=== PATIENT | male | born 1950 | race Caucasian/White ===

== ENCOUNTER 2017-05-18 20:22 | Inpatient (IN) | payer OTHER ==
[~2017-05-18] VITALS: Ht 187.9 cm; Wt 108.6 kg
[~2017-05-18 20:22] MED LIST: LIDEX 0.05% CRE15 GM T; REMERON30 M1 PO; TRAZODONE100 MG PO; ZOLOFT50 MG PO
[2017-05-18 20:30] VITALS: BP 188/89
[2017-05-18 20:43] LABS: BASO % 0.5 % (0.0-1.0); EOS # 0.4 10*3/uL (0.0-0.4); EOS % 4.2 % (1.0-4.0); HEMATOCRIT 41.8 % (42.0-52.0); HEMOGLOBIN 14.1 g/dl (14.0-18.0); LYMPH % 23.4 % (27.0-41.0); MEAN CELL VOLUME 86.9 fl (80.0-94.0); MEAN CORPUSCULAR HGB 29.3 pg (27.0-31.0); MEAN CORPUSCULAR HGB CONC 33.7 g/dl (33.0-37.0); MEAN PLATELET VOLUME 10.9 fl (9.6-12.3); MONO # 0.9 10*3/uL (0.1-1.0); MONO % 9.9 % (3.0-9.0); NEUT # 5.4 10*3/uL (2.3-7.9); NEUT % 61.8 % (47.0-73.0); PLATELET COUNT AUTOMATED 189 10*3/uL (130-400); RED BLOOD COUNT 4.81 10*6/uL (4.50-5.90); RED CELL DISTRI WIDTH 12.6 % (0-14.5); WHITE BLOOD COUNT 8.7 10*3/uL (4.8-10.8)
[2017-05-18 20:53] LABS: INTERNATIONAL NORM RATIO 0.9 (2.0-3.5); PROTHROMBIN TIME 9.8 SECONDS (9.0-12.4)
[2017-05-18 21:00] LABS: ALBUMIN 3.4 gm/dl (3.1-4.5); ALKALINE PHOSPHATASE 78 U/L (45-117); BILIRUBIN, TOTAL 0.3 mg/dl (0.2-1.0); BUN 28 mg/dl (7-24); CARBON DIOXIDE 27 mmol/L (21-32); CHLORIDE 107 mmol/L (98-107); EST GLOM FILT AFRICAN AMERICAN > 60 ml/min; GLUCOSE 124 mg/dL (65-99); MAGNESIUM 2.1 mg/dL (1.5-2.1); POTASSIUM 3.8 mmol/L (3.5-5.1); SGOT/AST 20 IU/L (3-35); SGPT/ALT 28 U/L (12-78); SODIUM 142 mmol/L (136-145); TOTAL PROTEIN 6.9 gm/dL (6.4-8.2)
[2017-05-18 21:01] LABS: TROPONIN I < 0.015 ng/ml (<0.045)
[2017-05-18 21:17] VITALS: BP 146/66
[2017-05-18 21:33] VITALS: BP 161/72
[2017-05-18 21:58] VITALS: BP 173/81
[2017-05-18 22:00] VITALS: BP 173/81
[2017-05-19] VITALS: BP 165/80; BP 168/76
[2017-05-19 02:36] LABS: BASO % 0.4 % (0.0-1.0); EOS # 0.3 10*3/uL (0.0-0.4); EOS % 4.2 % (1.0-4.0); HEMATOCRIT 40.9 % (42.0-52.0); HEMOGLOBIN 13.8 g/dl (14.0-18.0); LYMPH # 1.6 10*3/uL (1.3-4.4); LYMPH % 23.2 % (27.0-41.0); MEAN CELL VOLUME 87.2 fl (80.0-94.0); MEAN CORPUSCULAR HGB 29.4 pg (27.0-31.0); MEAN CORPUSCULAR HGB CONC 33.7 g/dl (33.0-37.0); MEAN PLATELET VOLUME 10.4 fl (9.6-12.3); MONO # 0.8 10*3/uL (0.1-1.0); MONO % 11.7 % (3.0-9.0); NEUT # 4.1 10*3/uL (2.3-7.9); NEUT % 60.1 % (47.0-73.0); PLATELET COUNT AUTOMATED 164 10*3/uL (130-400); RED BLOOD COUNT 4.69 10*6/uL (4.50-5.90); RED CELL DISTRI WIDTH 12.6 % (0-14.5); WHITE BLOOD COUNT 6.9 10*3/uL (4.8-10.8)
[2017-05-19 02:53] LABS: HEMOGLOBIN A1c 5.9 % (4.8-5.6)
[2017-05-19 03:02] LABS: ALBUMIN 3.1 gm/dl (3.1-4.5); ALKALINE PHOSPHATASE 64 U/L (45-117); BILIRUBIN, TOTAL 0.3 mg/dl (0.2-1.0); BUN 24 mg/dl (7-24); CARBON DIOXIDE 24 mmol/L (21-32); CHLORIDE 110 mmol/L (98-107); CHOLESTEROL 143 mg/dL (<200); EST GLOM FILT AFRICAN AMERICAN > 60 ml/min; GLUCOSE 106 mg/dL (65-99); HDL CHOLESTEROL 33 mg/dl (40-60); LDL CHOLESTEROL 94 mg/dL (9-159); MAGNESIUM 2.1 mg/dL (1.5-2.1); PHOSPHOROUS 3.5 mg/dL (2.5-4.9); SGOT/AST 17 IU/L (3-35); SGPT/ALT 26 U/L (12-78); SODIUM 142 mmol/L (136-145); TOTAL PROTEIN 6.5 gm/dL (6.4-8.2); TRIGLYCERIDES 81 mg/dl (<150); VLDL CHOLESTEROL 16 mg/dL (6-40)
[2017-05-19 03:21] LABS: VITAMIN D, 25-HYDROXY 30.3 ng/mL (30-100)
[2017-05-19 03:22] LABS: FOLIC ACID 11.13 ng/mL (>5.38)
[2017-05-19 04:00] VITALS: BP 168/76
[2017-05-19 08:00] VITALS: BP 155/80
[2017-05-19] MEDS ORDERED: LISINOPRIL20 MG PO (10:34)
[2017-05-19] MEDS ORDERED: LEVAQUIN750 M1 PO (10:36)
== END 2017-05-19 11:17 | disposition home or self-care (01) | DRG 178 ==
LOC: ED 20:22 → EDHOLD 21:11 → 5E 21:36
PROVIDERS: Hospitalist; Student in an Organized Health Care Education/Training Program
DX: J15.6 Pneumonia due to other Gram-negative bacteria (principal); I16.1 Hypertensive emergency; J44.9 Chronic obstructive pulmonary disease, unspecified; J98.11 Atelectasis; F17.210 Nicotine dependence, cigarettes, uncomplicated; E11.9 Type 2 diabetes mellitus without complications; E66.9 Obesity, unspecified; E78.5 Hyperlipidemia, unspecified; Z79.2 Long term (current) use of antibiotics; Z79.899 Other long term (current) drug therapy; Z82.49 Family history of ischemic heart disease and other diseases of the circulatory system; I25.2 Old myocardial infarction; Z89.111 Acquired absence of right hand; Z71.6 Tobacco abuse counseling; Z95.1 Presence of aortocoronary bypass graft; Z95.5 Presence of coronary angioplasty implant and graft; Z68.30 Body mass index [BMI] 30.0-30.9, adult

== ENCOUNTER 2017-06-21 13:28 | Emergency (ER) | payer OTHER ==
[~2017-06-21] VITALS: Wt 106.6 kg
[~2017-06-21 13:28] MED LIST changes: +LEVAQUIN750 M1 PO; +LISINOPRIL20 MG PO
[2017-06-21 13:31] VITALS: BP 177/85
[2017-06-21 13:58] LABS: BASO # 0.1 10*3/uL (0.0-0.1); BASO % 0.6 % (0.0-1.0); EOS # 0.4 10*3/uL (0.0-0.4); HEMATOCRIT 44.8 % (42.0-52.0); HEMOGLOBIN 15.2 g/dl (14.0-18.0); LYMPH # 2.4 10*3/uL (1.3-4.4); LYMPH % 20.6 % (27.0-41.0); MEAN CELL VOLUME 87.2 fl (80.0-94.0); MEAN CORPUSCULAR HGB 29.6 pg (27.0-31.0); MEAN CORPUSCULAR HGB CONC 33.9 g/dl (33.0-37.0); MEAN PLATELET VOLUME 11.1 fl (9.6-12.3); MONO # 0.5 10*3/uL (0.1-1.0); MONO % 4.1 % (3.0-9.0); NEUT # 8.2 10*3/uL (2.3-7.9); NEUT % 71.2 % (47.0-73.0); PLATELET COUNT AUTOMATED 203 10*3/uL (130-400); RED BLOOD COUNT 5.14 10*6/uL (4.50-5.90); RED CELL DISTRI WIDTH 12.7 % (0-14.5); WHITE BLOOD COUNT 11.5 10*3/uL (4.8-10.8)
[2017-06-21 14:17] LABS: ALBUMIN 3.5 gm/dl (3.1-4.5); ALKALINE PHOSPHATASE 77 U/L (45-117); BUN 16 mg/dl (7-24); CHLORIDE 105 mmol/L (98-107); CREATININE 0.87 mg/dL (0.70-1.30); MAGNESIUM 2.1 mg/dL (1.5-2.1); POTASSIUM 4.1 mmol/L (3.5-5.1); SGOT/AST 20 IU/L (3-35); SGPT/ALT 23 U/L (12-78); SODIUM 139 mmol/L (136-145); TOTAL PROTEIN 7.3 gm/dL (6.4-8.2)
[2017-06-21 14:24] LABS: TROPONIN I < 0.015 ng/ml (<0.045)
== END 2017-06-21 15:48 | disposition home or self-care (01) ==
LOC: ED 13:28
PROVIDERS: Nurse Practitioner Family
DX: J40 Bronchitis, not specified as acute or chronic (principal); R03.0 Elevated blood-pressure reading, without diagnosis of hypertension; F17.200 Nicotine dependence, unspecified, uncomplicated

== ENCOUNTER 2018-12-19 16:52 | Inpatient (IN) | payer OTHER ==
[~2018-12-19] VITALS: Ht 188 cm; Wt 108.2 kg
--- NOTE | ~2018-12-19 | EKG ---
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
--- NOTE | ~2018-12-19 | EKG ---
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
--- NOTE | ~2018-12-19 | EKG ---
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
--- NOTE | ~2018-12-19 | ST ---
[place], [place] EXERCISE STRESS TEST REPORT NAME: EMANUEL MERCADO SR UNIT #: [id number] ROOM: 515 DOCTOR: TAMARA TOLBERT MD BIRTHDATE: [birth year] DOS: 12/22/2018 LEXISCAN STRESS EKG REPORT REFERRING PHYSICIAN: Dr. Clayton. INDICATION: Chest pain. The patient underwent standard protocol Lexiscan stress EKG. The patient's baseline EKG showed normal sinus rhythm with an incomplete right bundle-branch block, nonspecific ST-T wave changes, heart rate 64 with a blood pressure of 122/68. The patient's peak heart was 96 with blood pressure of 104/50. The patient had no chest pain, no ischemic changes, no arrhythmias. SUMMARY OF FINDINGS: Unremarkable Lexiscan stress EKG. Please see separate report for perfusion scan imaging. TAMARA TOLBERT MD CM:STRESS:EXERCISE STRESS TEST REPORT [id number] TAMARA TOLBERT MD
[2018-12-19 16:57] VITALS: BP 190/90
[2018-12-19] MEDS ORDERED: CYMBALTA30 MG PO (17:08)
[2018-12-19 17:14] LABS: BASO % 0.5 % (0.0-1.0); EOS # 0.3 10*3/uL (0.0-0.4); HEMATOCRIT 43.8 % (42.0-52.0); HEMOGLOBIN 14.8 g/dl (14.0-18.0); LYMPH # 1.9 10*3/uL (1.3-4.4); LYMPH % 24.5 % (27.0-41.0); MEAN CELL VOLUME 88.1 fl (80.0-94.0); MEAN CORPUSCULAR HGB 29.8 pg (27.0-31.0); MEAN CORPUSCULAR HGB CONC 33.8 g/dl (33.0-37.0); MEAN PLATELET VOLUME 10.9 fl (9.6-12.3); MONO # 0.9 10*3/uL (0.1-1.0); MONO % 11.6 % (3.0-9.0); NEUT # 4.7 10*3/uL (2.3-7.9); NEUT % 59.1 % (47.0-73.0); PLATELET COUNT AUTOMATED 204 10*3/uL (130-400); RED BLOOD COUNT 4.97 10*6/uL (4.50-5.90); RED CELL DISTRI WIDTH 12.9 % (0-14.5); WHITE BLOOD COUNT 7.9 10*3/uL (4.8-10.8)
[2018-12-19 17:22] LABS: ACT PARTIAL THROMBO TIME 25.1 SECONDS (20.8-31.5); INTERNATIONAL NORM RATIO 0.9 (2.0-3.5)
[2018-12-19 17:54] LABS: ALBUMIN 3.4 gm/dl (3.1-4.5); ALKALINE PHOSPHATASE 67 U/L (45-117); BUN 21 mg/dl (7-24); CHLORIDE 106 mmol/L (98-107); CREATININE 0.87 mg/dL (0.70-1.30); POTASSIUM 4.2 mmol/L (3.5-5.1); SGOT/AST 20 IU/L (3-35); SGPT/ALT 27 U/L (12-78); SODIUM 140 mmol/L (136-145); TOTAL PROTEIN 7.6 gm/dL (6.4-8.2)
[2018-12-19 18:00] LABS: TROPONIN I < 0.015 ng/ml (<0.045)
[2018-12-19 19:22] VITALS: BP 156/80
--- NOTE | 2018-12-19 19:22 | NUR ---
SHIFT REPORT FROM A BOB. PATIENT IN ROOM IN NO DISTRESS. DENIES PAIN OR DISCOMFORT.
[2018-12-19 20:48] VITALS: BP 149/77
[2018-12-19 20:56] VITALS: BP 170/72
--- NOTE | 2018-12-19 20:56 | NUR ---
A 68, admitted to , under the services of ESEQUIEL Jimenez DO with a diagnosis of CHEST PAIN. Chief complaint is CP LEFT SIDED OFF AND ON FOR 1 MONTH. WITH EXCERTION WORSE RADIATING TO LEFT ARM LASTING ABOUT AN HOUR WITH SOB. Patient arrived via stretcher from ER. Monitor applied. Initial assessment completed. Vital signs taken and recorded. ESEQUIEL JIMENEZ DO notified of admission to the unit. Orders received. See assessment for past medical history, medications and allergies. Patient and/or family oriented to unit. [facility]. visitation policy reviewed. Clothing/patient valuable form completed. KYLE FULLER
[2018-12-19] MEDS ORDERED: LISINOPRIL20 MG PO (21:19)
--- NOTE | 2018-12-19 22:15 | NUR ---
DR. DAUGHERTY AWARE HOME MEDICATIONS RECONCILLED AND THAT HE TAKES THESE MEDS IN THE EVENING. ORDERS TO BE RECIEVED.
[2018-12-19 23:02] LABS: LIPASE 148 U/L (73-393)
--- NOTE | 2018-12-19 23:36 | NUR ---
TO CT VIA W/C FOR CT ABD/PELVIS.
[2018-12-20] VITALS: BP 140/75
[2018-12-20 07:21] LABS: BASO % 0.4 % (0.0-1.0); EOS # 0.4 10*3/uL (0.0-0.4); EOS % 3.9 % (1.0-4.0); HEMATOCRIT 44.8 % (42.0-52.0); HEMOGLOBIN 14.7 g/dl (14.0-18.0); LYMPH # 1.7 10*3/uL (1.3-4.4); LYMPH % 18.4 % (27.0-41.0); MEAN CELL VOLUME 88.5 fl (80.0-94.0); MEAN CORPUSCULAR HGB 29.1 pg (27.0-31.0); MEAN CORPUSCULAR HGB CONC 32.8 g/dl (33.0-37.0); MEAN PLATELET VOLUME 10.7 fl (9.6-12.3); MONO # 0.8 10*3/uL (0.1-1.0); MONO % 9.3 % (3.0-9.0); NEUT # 6.1 10*3/uL (2.3-7.9); NEUT % 67.4 % (47.0-73.0); PLATELET COUNT AUTOMATED 219 10*3/uL (130-400); RED BLOOD COUNT 5.06 10*6/uL (4.50-5.90)
[2018-12-20 07:48] LABS: ALBUMIN 3.2 gm/dl (3.1-4.5); BUN 16 mg/dl (7-24); CHLORIDE 105 mmol/L (98-107); CHOLESTEROL 138 mg/dL (<200); CREATININE 0.77 mg/dL (0.70-1.30); PHOSPHOROUS 3.3 mg/dL (2.5-4.9); POTASSIUM 4.3 mmol/L (3.5-5.1); SGOT/AST 17 IU/L (3-35); SGPT/ALT 26 U/L (12-78); SODIUM 139 mmol/L (136-145)
--- NOTE | 2018-12-20 07:52 | NUR ---
CALL DR. TOLBERT ANSWERING SERVICE AND NOTIFIED OF PT. CONSULT.
[2018-12-20 07:55] LABS: ALKALINE PHOSPHATASE 67 U/L (45-117); FREE T4 0.82 ng/dl (0.76-1.46); HDL CHOLESTEROL 27 mg/dl (40-60); LDL CHOLESTEROL 85 mg/dL (9-159); TOTAL PROTEIN 7.2 gm/dL (6.4-8.2); TRIGLYCERIDES 132 mg/dl (<150); VLDL CHOLESTEROL 26 mg/dL (6-40)
[2018-12-20 08:00] VITALS: BP 151/67
[2018-12-20 08:01] LABS: VITAMIN D, 25-HYDROXY 28.7 ng/mL (30-100)
[2018-12-20 12:00] VITALS: BP 147/73
[2018-12-20 16:00] VITALS: BP 143/61
[2018-12-20 20:00] VITALS: BP 154/74
--- NOTE | 2018-12-20 20:50 | NUR ---
24 HR chart check completed.
[2018-12-21] VITALS: BP 152/74
[2018-12-21 06:17] LABS: BASO % 0.4 % (0.0-1.0); EOS # 0.3 10*3/uL (0.0-0.4); EOS % 3.4 % (1.0-4.0); HEMATOCRIT 43.8 % (42.0-52.0); HEMOGLOBIN 14.6 g/dl (14.0-18.0); LYMPH # 1.7 10*3/uL (1.3-4.4); LYMPH % 22.4 % (27.0-41.0); MEAN CELL VOLUME 88.5 fl (80.0-94.0); MEAN CORPUSCULAR HGB 29.5 pg (27.0-31.0); MEAN CORPUSCULAR HGB CONC 33.3 g/dl (33.0-37.0); MONO # 0.8 10*3/uL (0.1-1.0); MONO % 10.3 % (3.0-9.0); NEUT # 4.8 10*3/uL (2.3-7.9); NEUT % 63.1 % (47.0-73.0); PLATELET COUNT AUTOMATED 203 10*3/uL (130-400); RED BLOOD COUNT 4.95 10*6/uL (4.50-5.90); RED CELL DISTRI WIDTH 12.8 % (0-14.5); WHITE BLOOD COUNT 7.6 10*3/uL (4.8-10.8)
[2018-12-21 06:45] LABS: BUN 20 mg/dl (7-24); CHLORIDE 105 mmol/L (98-107); CREATININE 0.88 mg/dL (0.70-1.30); POTASSIUM 4.4 mmol/L (3.5-5.1); SODIUM 139 mmol/L (136-145)
[2018-12-21 08:00] VITALS: BP 154/80
[2018-12-21 12:00] VITALS: BP 146/74
[2018-12-21 16:00] VITALS: BP 150/74
--- NOTE | 2018-12-21 19:34 | NUR ---
ASSUMED CARE OF PT AT THIS TIME. PATIENT UP AMBULATING IN HALLS WITH FAMILY. STEADY GAIT OBSERVED. PATIENT DENIES ANY CHEST PAIN/PRESSURE/SOB AND/OR GENERALIZED DISCOMFORT. WILL MONITOR.
[2018-12-21 20:00] VITALS: BP 144/78; BP 147/73
[2018-12-21 21:00] VITALS: BP 147/73
--- NOTE | 2018-12-21 21:34 | NUR ---
CALLED AT THIS TIME TO CLARIFY WHETHER TO GIVE PO LISINOPRIL SCHEDULED FOR 2199. PATIENT'S BLOOD PRESSURE ELEVATED AT 147/73, BUT HR RUNNING BETWEEN 56-68 PER CM. INSTRUCTED TO GIVE PO LISINOPRIL ORDERED.
[2018-12-22] VITALS: BP 150/66
--- NOTE | 2018-12-22 06:51 | NUR ---
SPOKE TO [facility] REGARDING STRESS TEST. PATIENT WILL BE INJECTED AROUND 11 AM AND WILL BE TAKEN DOWN FOR EXERCISE STRESS TEST WITHIN THE HOUR FOLLOWING INJECTION. PATIENT UPDATED ON PLAN OF CARE. PATIENT UP IN HALLS WALKING. WORRIED HE MAY NOT BE ABLE TO COMPLETE EXERCISE STRESS TEST. UPDATED MAGALY FROM [facility]. STATES THEY WILL RE-EVALUATE PATIENT'S STATUS AT 11 AND WILL ORDER LEXISCAN IF NEED BE.
--- NOTE | 2018-12-22 07:25 | NUR ---
BEDSDIE REPORT OBTAINED FROM NOEMY. PATIENT IS RESTING IN BED, EYES CLOSED. NO S&S OF DISTRESS NOTED, RESP ARE ERND ON ROOM AIR. BED IS LOCKED IN LOWEST POSITION. CALL LIGHT LEFT WITHIN REACH.
[2018-12-22 07:45] VITALS: BP 124/68
--- NOTE | 2018-12-22 08:00 | NUR ---
VITALS STABLE. 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 SUMAYA CAMPBELL SPCC
--- NOTE | 2018-12-22 10:34 | NUR ---
PT REMAINS NPO FOR STRESS TEST, STATES HE TOOK A SHOWER THIS MORNING AT 7AM, IS NOW RESTING WITH EYES CLOSED, RESPIRATIONS EASY AND REGULAR. WILL CONTINUE TO MONITOR. SUMAYA CAMPBELL SPNRCC
--- NOTE | 2018-12-22 11:24 | NUR ---
PT TRANSPORTED TO [facility] FOR STRESS TEST VIA WHEELCHAIR. NPO STATUS MAINTAINED, CONDITION STABLE. SUMAYA REYESCC
--- NOTE | 2018-12-22 12:04 | NUR ---
INFORMED CONSENT SIGNED FOR LEXISCAN STRESS TEST WITH DR. TOLBERT. RESTING EKG RBBB, HR 64 BP 122/68. PULSE OX 95% AND LUNGS CLEAR. COMPELTED ONE MINUTE OF LEXISCAN PROTOCOL RECEIVING LEXISCA 0.4MG OVER 10 SECONDS. NO ARRHYTHMAIS OR ST CHANGES NOTED. PT C/O LIGHTHEADEDNESS. LAST RECOVERY HR 88, BP 112/60. WAITING NUCLEAR SCANNING IN STABLE CONDITION.
--- NOTE | 2018-12-22 12:16 | NUR ---
[place] [employer] in to talk to patient. Patient states lives at HOME with . There are 10 steps in the home. Physician: LORI [facility]acy: [facility] Home health services: NONE Patient's level of ADLs: INDEPENDENT Patient has working utilities: YES DME: NONE Follow-up physician's appointment after d/c: WILL BE MADE BY HOSPITALIST NURSE DIRECTOR ON DISCHARGE Does patient want to access PORTAL?: NO Discharge plan PT LIVES AT HOME WITH HIS AND IS INDEPENDENT IN CARE. DENIES ANY HOME NEEDS ON DISCHARGE. WILL CONTINUE TO FOLLOW. STATES HE WILL HAVE A RIDE HOME ON DISCHARGE.. LISA QUINONES
[2018-12-22 16:00] VITALS: BP 154/79
[2018-12-22] MEDS ORDERED: ATORVASTATIN CA20 M1 PO (16:20)
[2018-12-22] MEDS ORDERED: AMLODIPINE BESYL5 MG PO (16:20)
--- NOTE | 2018-12-22 17:30 | NUR ---
Discharge instructions reviewed with patient/family. Patient receptive and verbalizes understanding. Follow-up care TO BE arranged BY PATIENT. Written instructions given to patient/family. IV CATH REMOVED AND DEMOLITION ENGINEER ACCOUTNED FOR. VALENCIA BAEZ
== END 2018-12-22 17:30 | disposition home or self-care (01) | DRG 305 ==
LOC: ED 16:52 → 5E 18:24 → EDHOLD 18:24 → 5E 18:24
PROVIDERS: Emergency Medicine; Internal Medicine; Internal Medicine Nephrology; ADMIT Emergency Medicine
PROC: 3E073KZ Introduction of Other Diagnostic Substance into Coronary Artery, Percutaneous Approach (ICD-10-PCS; principal; 2018-12-22)
PROC: 4A02XM4 Measurement of Cardiac Total Activity, External Approach (ICD-10-PCS; principal; 2018-12-22)
DX: I16.0 Hypertensive urgency (principal); E44.1 Mild protein-calorie malnutrition; I50.32 Chronic diastolic (congestive) heart failure; R07.89 Other chest pain; E66.9 Obesity, unspecified; R00.1 Bradycardia, unspecified; E55.9 Vitamin D deficiency, unspecified; I11.0 Hypertensive heart disease with heart failure; I35.1 Nonrheumatic aortic (valve) insufficiency; G47.33 Obstructive sleep apnea (adult) (pediatric); E78.5 Hyperlipidemia, unspecified; F32.9 Major depressive disorder, single episode, unspecified; Z72.0 Tobacco use; Z71.6 Tobacco abuse counseling; Z87.01 Personal history of pneumonia (recurrent); Z98.52 Vasectomy status; Z82.49 Family history of ischemic heart disease and other diseases of the circulatory system; Z83.3 Family history of diabetes mellitus; Z80.0 Family history of malignant neoplasm of digestive organs; Z91.19 Patient's noncompliance with other medical treatment and regimen; Z82.0 Family history of epilepsy and other diseases of the nervous system; Z79.899 Other long term (current) drug therapy; Z68.30 Body mass index [BMI] 30.0-30.9, adult

== ENCOUNTER 2019-09-14 14:06 | Inpatient (IN) | payer OTHER ==
[~2019-09-14] VITALS: Ht 185.4 cm; Wt 106.1 kg
[~2019-09-14 14:06] MED LIST changes: +AMLODIPINE BESYL5 MG PO; +ATORVASTATIN CA20 M1 PO; +CYMBALTA30 MG PO
[2019-09-14 14:24] VITALS: BP 166/71
[2019-09-14 14:30] LABS: BASO % 0.4 % (0.0-1.0); EOS # 0.3 10*3/uL (0.0-0.4); EOS % 3.1 % (1.0-4.0); HEMATOCRIT 45.1 % (42.0-52.0); LYMPH # 1.9 10*3/uL (1.3-4.4); LYMPH % 19.1 % (27.0-41.0); MEAN CELL VOLUME 87.7 fl (80.0-94.0); MEAN CORPUSCULAR HGB 29.2 pg (27.0-31.0); MEAN CORPUSCULAR HGB CONC 33.3 g/dl (33.0-37.0); MEAN PLATELET VOLUME 10.5 fl (9.6-12.3); MONO # 0.6 10*3/uL (0.1-1.0); NEUT # 7.1 10*3/uL (2.3-7.9); PLATELET COUNT AUTOMATED 206 10*3/uL (130-400); RED BLOOD COUNT 5.14 10*6/uL (4.50-5.90); RED CELL DISTRI WIDTH 12.7 % (0-14.5)
[2019-09-14 14:46] LABS: ALBUMIN 3.6 gm/dl (3.1-4.5); ALKALINE PHOSPHATASE 72 U/L (45-117); BUN 20 mg/dl (7-24); CHLORIDE 108 mmol/L (98-107); CREATININE 0.92 mg/dL (0.70-1.30); POTASSIUM 3.9 mmol/L (3.5-5.1); SGOT/AST 43 IU/L (3-35); SGPT/ALT 59 U/L (12-78); SODIUM 140 mmol/L (136-145); TOTAL PROTEIN 7.5 gm/dL (6.4-8.2)
[2019-09-14 14:47] LABS: TROPONIN I < 0.015 ng/ml (<0.045)
[2019-09-14 15:09] LABS: ACT PARTIAL THROMBO TIME 24.4 SECONDS (20.0-32.1); INTERNATIONAL NORM RATIO 0.9 (2.0-3.5)
--- NOTE | 2019-09-14 15:21 | NUR ---
NURSE-NURSE REPORT RECEIVED FROM DARI GARVEY.
[2019-09-14 16:27] VITALS: BP 139/92
--- NOTE | 2019-09-14 16:30 | NUR ---
A 69, admitted to , under the services of GILDA Nino DO with a diagnosis of SUNCOPE, NAUSEA/VOMITTING. Chief complaint is SYNCOPAL EPISODE AT HIME. Patient arrived via bed from ER. Monitor applied. Initial assessment completed. Vital signs taken and recorded. GILDA NINO DO notified of admission to the unit. Orders received. See assessment for past medical history, medications and allergies. Patient and/or family oriented to unit. [facility] visitation policy reviewed. Clothing/patient valuable form completed. JEANNETTE ALCANTAR
[2019-09-14 16:40] VITALS: BP 186/86
[2019-09-14 18:00] VITALS: BP 162/82
[2019-09-14 20:00] VITALS: BP 150/70
--- NOTE | 2019-09-14 20:28 | NUR ---
DR WILLSON NOTIFIED OF UPDATED MED REC.
[2019-09-14 22:05] LABS: BILIRUBIN NEGATIVE (NEGATIVE); BLOOD TRACE-LYSED (NEGATIVE); CLARITY CLEAR (CLEAR); COLOR YELLOW (YELLOW); GLUCOSE NEGATIVE (NEGATIVE); KETONE NEGATIVE (NEGATIVE); LEUKO ESTERASE NEGATIVE (NEGATIVE); NITRITE NEGATIVE (NEGATIVE); PH 6.5 (5.0-9.0); UROBILINOGEN 0.2 E.U./dl (0.2-1.0)
[2019-09-14 22:16] LABS: URINE AMPHETAMINES < 1000 (1000ng/ml); URINE BARBITURATES < 200 (200ng/ml); URINE BENZODIAZEPINES < 200 (200ng/ml); URINE CANNABINOIDS (THC) < 50 (50ng/ml); URINE COCAINE < 300 (300ng/ml); URINE METHADONE < 300 (300ng/ml); URINE OPIATES < 300 (300ng/ml)
[2019-09-14 22:21] LABS: URINE PHENCYCLIDINE < 25 (25ng/ml)
--- NOTE | 2019-09-14 22:52 | NUR ---
24 HOUR CHART CHECK COMPLETE.
[2019-09-15] VITALS: BP 150/80; BP 164/69
--- NOTE | 2019-09-15 00:09 | NUR ---
DR WILLSON NOTIFIED OF MANUAL BP OF 160/80. NO NEW ORDERS AT THIS TIME.
[2019-09-15 06:41] LABS: BASO # 0.1 10*3/uL (0.0-0.1); BASO % 0.4 % (0.0-1.0); EOS # 0.3 10*3/uL (0.0-0.4); EOS % 2.3 % (1.0-4.0); HEMATOCRIT 42.1 % (42.0-52.0); HEMOGLOBIN 13.7 g/dl (14.0-18.0); LYMPH # 1.8 10*3/uL (1.3-4.4); LYMPH % 14.8 % (27.0-41.0); MEAN CORPUSCULAR HGB CONC 32.5 g/dl (33.0-37.0); MEAN PLATELET VOLUME 11.4 fl (9.6-12.3); MONO # 0.8 10*3/uL (0.1-1.0); MONO % 6.4 % (3.0-9.0); NEUT # 9.1 10*3/uL (2.3-7.9); NEUT % 75.6 % (47.0-73.0); PLATELET COUNT AUTOMATED 208 10*3/uL (130-400); RED BLOOD COUNT 4.73 10*6/uL (4.50-5.90); RED CELL DISTRI WIDTH 12.7 % (0-14.5); WHITE BLOOD COUNT 12.1 10*3/uL (4.8-10.8)
[2019-09-15 06:53] LABS: BUN 19 mg/dl (7-24); CHLORIDE 110 mmol/L (98-107); POTASSIUM 4.2 mmol/L (3.5-5.1); SODIUM 141 mmol/L (136-145)
[2019-09-15 06:59] LABS: CHOLESTEROL 146 mg/dL (<200); CREATININE 0.83 mg/dL (0.70-1.30); HDL CHOLESTEROL 33 mg/dl (40-60); LDL CHOLESTEROL 93 mg/dL (9-159); PHOSPHOROUS 2.8 mg/dL (2.5-4.9); TRIGLYCERIDES 98 mg/dl (<150); VLDL CHOLESTEROL 20 mg/dL (6-40)
[2019-09-15 08:00] VITALS: BP 163/54
--- NOTE | 2019-09-15 09:15 | NUR ---
PT RESTING IN BED. NO DISTRESS NOTED. WILL MONITOR
--- NOTE | 2019-09-15 10:30 | NUR ---
Heat Treater Head in to talk to patient. Patient states lives at home with his . There are 15 steps in the home. Physician: Dr. Brayan Gonzalez Pharmacy: [facility] Home health services: none Patient's level of ADLs: INDEPENDENT Patient has working utilities: yes DME: none Follow-up physician's appointment after d/c: will be made by the hospitalist nurse director upon discharge Does patient want to access PORTAL?: no Discharge plan discussed with patient and who is at the bedside. He is independent in her ADLs and ambulation. Discussed home health care services and he denies any home needs. When medically stable he will be discharged to home. His will provide transportation on discharge. JAYSON RIOJAS
[2019-09-15 12:00] VITALS: BP 160/54
--- NOTE | 2019-09-15 12:56 | NUR ---
dr navarro notified of ortho bp and pt high bp
[2019-09-15] MEDS ORDERED: LISINOPRIL20 MG PO (13:09)
[2019-09-15] MEDS ORDERED: VITAMIN D32000 UNI1 PO (13:09)
[2019-09-15] MEDS ORDERED: NORVASC5 MG PO (13:09)
--- NOTE | 2019-09-15 13:49 | NUR ---
Discharge instructions reviewed with patient/family. Patient receptive and verbalizes understanding. Follow-up care arranged. Written instructions given to patient/family. AYESHA BEATTY
== END 2019-09-15 13:49 | disposition home or self-care (01) | DRG 641 ==
LOC: ED 14:06 → EDHOLD 15:16 → 5E 15:16
PROVIDERS: Emergency Medicine; Internal Medicine; ADMIT Family Medicine
DX: E86.0 Dehydration (principal); I50.32 Chronic diastolic (congestive) heart failure; R55 Syncope and collapse; R11.2 Nausea with vomiting, unspecified; R73.9 Hyperglycemia, unspecified; R74.0 Nonspecific elevation of levels of transaminase and lactic acid dehydrogenase [LDH]; F17.210 Nicotine dependence, cigarettes, uncomplicated; E66.9 Obesity, unspecified; E87.8 Other disorders of electrolyte and fluid balance, not elsewhere classified; F32.9 Major depressive disorder, single episode, unspecified; I11.0 Hypertensive heart disease with heart failure; E55.9 Vitamin D deficiency, unspecified; Z71.6 Tobacco abuse counseling; Z89.021 Acquired absence of right finger(s); Z98.52 Vasectomy status; Z80.0 Family history of malignant neoplasm of digestive organs; Z82.49 Family history of ischemic heart disease and other diseases of the circulatory system; Z79.899 Other long term (current) drug therapy; Z68.30 Body mass index [BMI] 30.0-30.9, adult

== ENCOUNTER 2019-10-05 01:58 | Emergency (ER) | payer OTHER ==
[~2019-10-05] VITALS: Ht 187.9 cm; Wt 106.6 kg
[~2019-10-05 01:58] MED LIST changes: +NORVASC5 MG PO; +VITAMIN D32000 UNI1 PO
[2019-10-05 01:59] VITALS: BP 161/72
[2019-10-05 02:54] LABS: BASO # 0.1 10*3/uL (0.0-0.1); BASO % 0.5 % (0.0-1.0); EOS # 0.3 10*3/uL (0.0-0.4); EOS % 2.5 % (1.0-4.0); HEMATOCRIT 44.2 % (42.0-52.0); HEMOGLOBIN 14.5 g/dl (14.0-18.0); LYMPH # 1.8 10*3/uL (1.3-4.4); LYMPH % 17.2 % (27.0-41.0); MEAN CELL VOLUME 87.7 fl (80.0-94.0); MEAN CORPUSCULAR HGB 28.8 pg (27.0-31.0); MEAN CORPUSCULAR HGB CONC 32.8 g/dl (33.0-37.0); MEAN PLATELET VOLUME 10.8 fl (9.6-12.3); MONO # 0.6 10*3/uL (0.1-1.0); MONO % 5.9 % (3.0-9.0); NEUT # 7.8 10*3/uL (2.3-7.9); NEUT % 73.2 % (47.0-73.0); PLATELET COUNT AUTOMATED 210 10*3/uL (130-400); RED BLOOD COUNT 5.04 10*6/uL (4.50-5.90); RED CELL DISTRI WIDTH 12.5 % (0-14.5); WHITE BLOOD COUNT 10.6 10*3/uL (4.8-10.8)
[2019-10-05 02:59] LABS: BILIRUBIN NEGATIVE (NEGATIVE); BLOOD 3+ (NEGATIVE); CLARITY CLEAR (CLEAR); COLOR YELLOW (YELLOW); GLUCOSE NEGATIVE (NEGATIVE); KETONE NEGATIVE (NEGATIVE); LEUKO ESTERASE NEGATIVE (NEGATIVE); NITRITE NEGATIVE (NEGATIVE); SPECIFIC GRAVITY >= 1.030 (1.005-1.030); UROBILINOGEN 0.2 E.U./dl (0.2-1.0)
[2019-10-05 03:06] LABS: BACTERIA 1+; MUCOUS TRACE; RBC 41-50 rbc/hpf (0-2); WBC 0-2 wbc/hpf (0-5)
[2019-10-05 03:12] LABS: ALBUMIN 3.2 gm/dl (3.1-4.5); ALKALINE PHOSPHATASE 68 U/L (45-117); BUN 24 mg/dl (7-24); CHLORIDE 106 mmol/L (98-107); CREATININE 0.99 mg/dL (0.70-1.30); POTASSIUM 4.1 mmol/L (3.5-5.1); SGOT/AST 17 IU/L (3-35); SGPT/ALT 30 U/L (12-78); SODIUM 138 mmol/L (136-145); TOTAL PROTEIN 6.9 gm/dL (6.4-8.2)
== END 2019-10-05 04:20 | disposition home or self-care (01) ==
LOC: ED 01:58
PROVIDERS: Emergency Medicine
DX: N20.0 Calculus of kidney (principal); E66.9 Obesity, unspecified; I11.0 Hypertensive heart disease with heart failure; I50.30 Unspecified diastolic (congestive) heart failure; F17.210 Nicotine dependence, cigarettes, uncomplicated; Z68.30 Body mass index [BMI] 30.0-30.9, adult; Z79.899 Other long term (current) drug therapy

== ENCOUNTER 2020-04-07 11:48 | Observation (INO) | payer OTHER ==
[~2020-04-07] VITALS: Ht 187.9 cm; Wt 101.7 kg
[~2020-04-07 11:48] MED LIST changes: +ZOLOFT100 MG PO
[2020-04-07 11:53] VITALS: BP 134/84
[2020-04-07 12:27] LABS: BASO # 0.1 10*3/uL (0.0-0.1); BASO % 0.6 % (0.0-1.0); EOS # 0.3 10*3/uL (0.0-0.4); EOS % 3.8 % (1.0-4.0); HEMATOCRIT 42.4 % (42.0-52.0); LYMPH # 1.7 10*3/uL (1.3-4.4); LYMPH % 20.3 % (27.0-41.0); MEAN CELL VOLUME 90.4 fl (80.0-94.0); MEAN CORPUSCULAR HGB 29.9 pg (27.0-31.0); MEAN PLATELET VOLUME 10.6 fl (9.6-12.3); MONO # 0.6 10*3/uL (0.1-1.0); MONO % 7.2 % (3.0-9.0); NEUT # 5.6 10*3/uL (2.3-7.9); NEUT % 67.7 % (47.0-73.0); PLATELET COUNT AUTOMATED 201 10*3/uL (130-400); RED BLOOD COUNT 4.69 10*6/uL (4.50-5.90); RED CELL DISTRI WIDTH 12.5 % (0-14.5); WHITE BLOOD COUNT 8.2 10*3/uL (4.8-10.8)
[2020-04-07 12:39] LABS: ACT PARTIAL THROMBO TIME 27.1 SECONDS (20.0-32.1); INTERNATIONAL NORM RATIO 0.9 (2.0-3.5)
[2020-04-07 12:43] LABS: ALBUMIN 3.2 gm/dl (3.1-4.5); ALKALINE PHOSPHATASE 56 U/L (45-117); BUN 22 mg/dl (7-24); CHLORIDE 111 mmol/L (98-107); CREATININE 0.75 mg/dL (0.70-1.30); SGOT/AST 14 IU/L (3-35); SGPT/ALT 23 U/L (12-78); SODIUM 140 mmol/L (136-145); TOTAL PROTEIN 6.8 gm/dL (6.4-8.2)
[2020-04-07 12:48] LABS: TROPONIN I < 0.015 ng/ml (<0.045)
[2020-04-07 13:00] VITALS: BP 134/82
[2020-04-07 13:40] VITALS: BP 179/75
--- NOTE | 2020-04-07 13:40 | NUR ---
A 69, admitted to 5E, under the services of GILDA Nino DO with a diagnosis of CHEST PRESSURE. Chief complaint is CHEST PRESSURE. Patient arrived via ambulatory from ER. Monitor applied. Initial assessment completed. Vital signs taken and recorded. GILDA NINO DO notified of admission to the unit. Orders received. See assessment for past medical history, medications and allergies. Patient and/or family oriented to unit. [facility] visitation policy reviewed. Clothing/patient valuable form completed. MARQUITA SULLIVAN
--- NOTE | 2020-04-07 13:54 | NUR ---
MEDS VERIFIED AT BEDSIDE WITH PT AND HIS MEDICATION LIST. DR GARZA NOTIFIED WHILE HE ROUNDED AND SEEN PT.
[2020-04-07 16:00] VITALS: BP 152/73
[2020-04-07 20:00] VITALS: BP 138/72
[2020-04-08] VITALS: BP 132/55
[2020-04-08 06:15] LABS: BASO % 0.4 % (0.0-1.0); EOS # 0.4 10*3/uL (0.0-0.4); HEMATOCRIT 43.4 % (42.0-52.0); LYMPH # 1.9 10*3/uL (1.3-4.4); LYMPH % 20.4 % (27.0-41.0); MEAN CELL VOLUME 89.7 fl (80.0-94.0); MEAN CORPUSCULAR HGB 29.5 pg (27.0-31.0); MEAN CORPUSCULAR HGB CONC 32.9 g/dl (33.0-37.0); MEAN PLATELET VOLUME 10.8 fl (9.6-12.3); MONO # 0.7 10*3/uL (0.1-1.0); MONO % 7.3 % (3.0-9.0); NEUT # 6.1 10*3/uL (2.3-7.9); NEUT % 67.3 % (47.0-73.0); PLATELET COUNT AUTOMATED 196 10*3/uL (130-400); RED BLOOD COUNT 4.84 10*6/uL (4.50-5.90); RED CELL DISTRI WIDTH 12.3 % (0-14.5); WHITE BLOOD COUNT 9.1 10*3/uL (4.8-10.8)
[2020-04-08 06:39] LABS: BUN 19 mg/dl (7-24); CHLORIDE 107 mmol/L (98-107); CREATININE 0.81 mg/dL (0.70-1.30); POTASSIUM 4.2 mmol/L (3.5-5.1); SODIUM 137 mmol/L (136-145)
[2020-04-08 08:00] VITALS: BP 174/83
[2020-04-08 08:45] LABS: VITAMIN D, 25-HYDROXY 30.7 ng/mL (30-100)
--- NOTE | 2020-04-08 09:15 | NUR ---
DR GARZA AND DR HOBBS ROUNDED AND SEEN PT.
[2020-04-08] MEDS ORDERED: BENZONATATE100 M1 PO (09:29)
--- NOTE | 2020-04-08 09:57 | NUR ---
Discharge instructions reviewed with patient/family. Patient receptive and verbalizes understanding. Follow-up care arranged. Written instructions given to patient/family. MARQUITA SULLIVAN
== END 2020-04-08 09:37 | disposition home or self-care (01) ==
LOC: ED 11:48 → 5E 12:56 → EDHOLD 12:56 → 5E 13:14
PROVIDERS: Emergency Medicine; Internal Medicine; ADMIT Family Medicine
DX: R07.89 Other chest pain (principal); E87.8 Other disorders of electrolyte and fluid balance, not elsewhere classified; R73.9 Hyperglycemia, unspecified; E44.0 Moderate protein-calorie malnutrition; F32.9 Major depressive disorder, single episode, unspecified; I50.30 Unspecified diastolic (congestive) heart failure; E55.9 Vitamin D deficiency, unspecified; R00.1 Bradycardia, unspecified; I11.0 Hypertensive heart disease with heart failure

== ENCOUNTER → 2020-04-15 | Outpatient (CLI) | payer OTHER ==
[~2020-04-15] MED LIST changes: +BENZONATATE100 M1 PO
== END | disposition home or self-care (01) ==
LOC: COVID19 01:14
DX: Z01.818 Encounter for other preprocedural examination (principal); Z11.59 Encounter for screening for other viral diseases

== ENCOUNTER → 2020-04-21 | Day surgery (SDC) | payer OTHER ==
[~2020-04-21] VITALS: Ht 187.9 cm; Wt 101.6 kg
[2020-04-21 09:30] VITALS: BP 159/80
[2020-04-21 10:44] VITALS: BP 137/86
[2020-04-21 10:59] VITALS: BP 150/81
[2020-04-21 11:14] VITALS: BP 160/79
== END | disposition home or self-care (01) ==
LOC: SDC 04-04 10:15
DX: Z12.11 Encounter for screening for malignant neoplasm of colon (principal); D12.4 Benign neoplasm of descending colon; D12.2 Benign neoplasm of ascending colon; D12.5 Benign neoplasm of sigmoid colon; I10 Essential (primary) hypertension; F17.210 Nicotine dependence, cigarettes, uncomplicated; F32.9 Major depressive disorder, single episode, unspecified; Z98.890 Other specified postprocedural states; Z79.899 Other long term (current) drug therapy; Z80.0 Family history of malignant neoplasm of digestive organs; Z83.6 Family history of other diseases of the respiratory system; Z83.3 Family history of diabetes mellitus

== ENCOUNTER 2021-10-09 12:32 | Emergency (ER) | payer OTHER ==
[~2021-10-09] VITALS: Ht 187.9 cm; Wt 102.5 kg
[2021-10-09 12:44] VITALS: BP 121/70
[2021-10-09 18:50] VITALS: BP 129/75
[2021-10-09 19:05] VITALS: BP 117/67
[2021-10-09 19:20] VITALS: BP 126/65
[2021-10-09 19:38] VITALS: BP 138/67
[2021-10-09] MEDS ORDERED: NEXIUM40 MG PO (20:04)
== END 2021-10-09 20:08 | disposition home or self-care (01) ==
LOC: ED 12:32 → EDHOLD 17:55 → ED 17:55
DX: T18.128A Food in esophagus causing other injury, initial encounter (principal); Y92.89 Other specified places as the place of occurrence of the external cause

== ENCOUNTER → 2022-09-26 | Outpatient (CLI) | payer OTHER ==
[~2022-09-26] MED LIST changes: +NEXIUM40 MG PO
== END | disposition home or self-care (01) ==
LOC: MRI 01:18
PROVIDERS: ATTEND Specialist
DX: I67.82 Cerebral ischemia (principal)

== ENCOUNTER 2023-01-23 22:58 | Inpatient (IN) | payer OTHER ==
[~2023-01-23] VITALS: Ht 187.9 cm; Wt 105.0 kg
[2023-01-23 23:04] VITALS: BP 141/70
[2023-01-23 23:35] LABS: BASO % 0.3 % (0.0-1.0); EOS # 0.1 10*3/uL (0.0-0.4); EOS % 0.5 % (1.0-4.0); HEMATOCRIT 45.9 % (42.0-52.0); LYMPH # 1.2 10*3/uL (1.3-4.4); LYMPH % 8.4 % (27.0-41.0); MEAN CELL VOLUME 87.3 fl (80.0-94.0); MEAN CORPUSCULAR HGB CONC 34.4 g/dl (33.0-37.0); MEAN PLATELET VOLUME 9.9 fl (9.6-12.3); MONO # 1.1 10*3/uL (0.1-1.0); MONO % 8.2 % (3.0-9.0); NEUT # 11.3 10*3/uL (2.3-7.9); NEUT % 82.2 % (47.0-73.0); PLATELET COUNT AUTOMATED 240 10*3/uL (130-400); RED BLOOD COUNT 5.26 10*6/uL (4.50-5.90); RED CELL DISTRI WIDTH 11.9 % (0-14.5); WHITE BLOOD COUNT 13.7 10*3/uL (4.8-10.8)
[2023-01-23 23:50] LABS: ALKALINE PHOSPHATASE 56 U/L (46-116); BUN 15 mg/dl (9-23); CHLORIDE 106 mmol/L (98-107); LIPASE 30 U/L (12-53); SGPT/ALT 17 U/L (10-49); TOTAL PROTEIN 6.9 gm/dL (6.0-8.0)
[2023-01-24] VITALS (11 sets, daily range): BP systolic 101–152; BP diastolic 40–71
[2023-01-24 07:29] LABS: HEMATOCRIT 43.7 % (42.0-52.0); MEAN CELL VOLUME 88.3 fl (80.0-94.0); MEAN CORPUSCULAR HGB 29.9 pg (27.0-31.0); MEAN CORPUSCULAR HGB CONC 33.9 g/dl (33.0-37.0); MEAN PLATELET VOLUME 9.9 fl (9.6-12.3); PLATELET COUNT AUTOMATED 220 10*3/uL (130-400); RED BLOOD COUNT 4.95 10*6/uL (4.50-5.90); WHITE BLOOD COUNT 17.6 10*3/uL (4.8-10.8)
[2023-01-24 07:30] LABS: MANUAL DIFF REFLEX YES
[2023-01-24 07:39] LABS: INTERNATIONAL NORM RATIO 1.1 (2.0-3.5)
[2023-01-24 07:55] LABS: ATYPICAL LYMPHS 1 % (0-0); BURR CELLS FEW; PLATELET SUFFICIENCY NORMAL (NORMAL); POLYCHROMASIA SLIGHT; TOTAL CELLS COUNTED 100 #CELLS; TOXIC GRANULATION SLIGHT; VACUOLATION OF NEUTROPHILS SLIGHT
[2023-01-24 08:13] LABS: BUN 11 mg/dl (9-23); CHLORIDE 110 mmol/L (98-107); CHOLESTEROL 117 mg/dL (<200); FREE T4 0.95 ng/dl (0.89-1.76); LDL CHOLESTEROL 72 mg/dL (9-159); POTASSIUM 3.8 mmol/L (3.4-5.1); THYROID STIM HORMONE (HS) 1.102 uIU/ml (0.550-4.780); TRIGLYCERIDES 44 mg/dl (<150)
[2023-01-24] MEDS ORDERED: ZOLOFT100 MG PO (14:47)
[2023-01-25] VITALS: BP 96/40
[2023-01-25 04:38] LABS: BASO % 0.1 % (0.0-1.0); HEMATOCRIT 39.2 % (42.0-52.0); LYMPH # 0.9 10*3/uL (1.3-4.4); LYMPH % 5.3 % (27.0-41.0); MEAN CELL VOLUME 89.9 fl (80.0-94.0); MEAN CORPUSCULAR HGB 29.8 pg (27.0-31.0); MEAN CORPUSCULAR HGB CONC 33.2 g/dl (33.0-37.0); MEAN PLATELET VOLUME 10.1 fl (9.6-12.3); MONO # 0.9 10*3/uL (0.1-1.0); MONO % 5.5 % (3.0-9.0); NEUT # 14.5 10*3/uL (2.3-7.9); NEUT % 88.6 % (47.0-73.0); PLATELET COUNT AUTOMATED 209 10*3/uL (130-400); RED BLOOD COUNT 4.36 10*6/uL (4.50-5.90); RED CELL DISTRI WIDTH 12.1 % (0-14.5); WHITE BLOOD COUNT 16.3 10*3/uL (4.8-10.8)
[2023-01-25 05:05] LABS: BUN 17 mg/dl (9-23); CHLORIDE 109 mmol/L (98-107); POTASSIUM 4.2 mmol/L (3.4-5.1)
[2023-01-25 05:23] VITALS: BP 118/58
[2023-01-25 08:00] VITALS: BP 126/63
[2023-01-25] MEDS ORDERED: COLACE100 MG PO (08:55)
[2023-01-25] MEDS ORDERED: HYDROCODONE-AC1 EAC1 PO (08:55)
[2023-01-25] MEDS ORDERED: ONDANSETRON HYDR4 M1 PO (08:55)
[2023-01-25] MEDS ORDERED: AUGMENTIN 500500 M1 PO ×2 (08:55)
[2023-01-25 12:00] VITALS: BP 137/65
[2023-01-25 16:00] VITALS: BP 134/62
[2023-01-25 20:00] VITALS: BP 130/59
[2023-01-26] VITALS: BP 127/66
[2023-01-26 07:44] LABS: BASO % 0.2 % (0.0-1.0); EOS # 0.1 10*3/uL (0.0-0.4); EOS % 0.9 % (1.0-4.0); HEMATOCRIT 38.9 % (42.0-52.0); LYMPH # 0.7 10*3/uL (1.3-4.4); LYMPH % 5.8 % (27.0-41.0); MEAN CELL VOLUME 91.1 fl (80.0-94.0); MEAN CORPUSCULAR HGB CONC 32.9 g/dl (33.0-37.0); MEAN PLATELET VOLUME 10.6 fl (9.6-12.3); MONO # 0.7 10*3/uL (0.1-1.0); MONO % 5.8 % (3.0-9.0); NEUT # 11.1 10*3/uL (2.3-7.9); NEUT % 86.7 % (47.0-73.0); PLATELET COUNT AUTOMATED 228 10*3/uL (130-400); RED BLOOD COUNT 4.27 10*6/uL (4.50-5.90); RED CELL DISTRI WIDTH 12.5 % (0-14.5); WHITE BLOOD COUNT 12.8 10*3/uL (4.8-10.8)
[2023-01-26 08:00] VITALS: BP 142/64
[2023-01-26 08:00] LABS: BUN 20 mg/dl (9-23); CHLORIDE 109 mmol/L (98-107); POTASSIUM 3.9 mmol/L (3.4-5.1)
[2023-01-26 12:00] VITALS: BP 134/68
[2023-01-26 16:00] VITALS: BP 135/60
[2023-01-26 20:00] VITALS: BP 148/67
[2023-01-27] VITALS: BP 135/69
[2023-01-27 06:49] LABS: BASO % 0.3 % (0.0-1.0); EOS # 0.3 10*3/uL (0.0-0.4); EOS % 2.8 % (1.0-4.0); HEMATOCRIT 39.5 % (42.0-52.0); LYMPH # 0.7 10*3/uL (1.3-4.4); LYMPH % 6.4 % (27.0-41.0); MEAN CELL VOLUME 90.8 fl (80.0-94.0); MEAN CORPUSCULAR HGB 29.4 pg (27.0-31.0); MEAN CORPUSCULAR HGB CONC 32.4 g/dl (33.0-37.0); MEAN PLATELET VOLUME 9.9 fl (9.6-12.3); MONO # 0.9 10*3/uL (0.1-1.0); MONO % 7.8 % (3.0-9.0); NEUT # 9.5 10*3/uL (2.3-7.9); NEUT % 82.2 % (47.0-73.0); PLATELET COUNT AUTOMATED 234 10*3/uL (130-400); RED BLOOD COUNT 4.35 10*6/uL (4.50-5.90); RED CELL DISTRI WIDTH 12.1 % (0-14.5); WHITE BLOOD COUNT 11.5 10*3/uL (4.8-10.8)
[2023-01-27 07:03] LABS: BUN 16 mg/dl (9-23); CHLORIDE 105 mmol/L (98-107); POTASSIUM 3.8 mmol/L (3.4-5.1)
[2023-01-27 08:00] VITALS: BP 129/76
[2023-01-27 12:00] VITALS: BP 132/70
[2023-01-27 16:00] VITALS: BP 163/83
[2023-01-27 20:00] VITALS: BP 164/76
[2023-01-28] VITALS: BP 158/78
[2023-01-28 07:01] LABS: BASO % 0.4 % (0.0-1.0); EOS # 0.3 10*3/uL (0.0-0.4); EOS % 3.2 % (1.0-4.0); HEMATOCRIT 39.4 % (42.0-52.0); LYMPH % 8.8 % (27.0-41.0); MEAN CELL VOLUME 88.9 fl (80.0-94.0); MEAN CORPUSCULAR HGB 29.8 pg (27.0-31.0); MEAN CORPUSCULAR HGB CONC 33.5 g/dl (33.0-37.0); MEAN PLATELET VOLUME 9.8 fl (9.6-12.3); MONO # 0.8 10*3/uL (0.1-1.0); MONO % 7.4 % (3.0-9.0); NEUT # 8.6 10*3/uL (2.3-7.9); NEUT % 79.6 % (47.0-73.0); PLATELET COUNT AUTOMATED 265 10*3/uL (130-400); RED BLOOD COUNT 4.43 10*6/uL (4.50-5.90); RED CELL DISTRI WIDTH 11.9 % (0-14.5); WHITE BLOOD COUNT 10.8 10*3/uL (4.8-10.8)
[2023-01-28 07:33] LABS: BUN 14 mg/dl (9-23); CHLORIDE 105 mmol/L (98-107); POTASSIUM 3.6 mmol/L (3.4-5.1)
[2023-01-28 08:00] VITALS: BP 147/73
[2023-01-28] MEDS ORDERED: AMOX-CLAV 875-1 EACH PO (11:21)
== END 2023-01-28 12:07 | disposition home or self-care (01) | DRG 853 ==
LOC: ED 22:58 → 5E 01-24 00:56 → EDHOLD 01-24 00:56 → 5E 01-24 09:14
PROVIDERS: Internal Medicine; Student in an Organized Health Care Education/Training Program; ADMIT Internal Medicine; ATTEND Internal Medicine
PROC: 0DTJ4ZZ Resection of Appendix, Percutaneous Endoscopic Approach (ICD-10-PCS; principal; 2023-01-24)
PROC: 0DB84ZZ Excision of Small Intestine, Percutaneous Endoscopic Approach (ICD-10-PCS; 2023-01-24)
DX: A41.51 Sepsis due to Escherichia coli [E. coli] (principal); K35.32 Acute appendicitis with perforation, localized peritonitis, and gangrene, without abscess; I50.32 Chronic diastolic (congestive) heart failure; N20.0 Calculus of kidney; R73.9 Hyperglycemia, unspecified; K57.10 Diverticulosis of small intestine without perforation or abscess without bleeding; I10 Essential (primary) hypertension; F17.290 Nicotine dependence, other tobacco product, uncomplicated; Z79.899 Other long term (current) drug therapy

== ENCOUNTER 2023-02-07 09:45 | Emergency (ER) | payer OTHER ==
[~2023-02-07] VITALS: Wt 100.7 kg
[~2023-02-07 09:45] MED LIST changes: +AMOX-CLAV 875-1 EACH PO; +AUGMENTIN 500500 M1 PO; +COLACE100 MG PO; +HYDROCODONE-AC1 EAC1 PO; +ONDANSETRON HYDR4 M1 PO
[2023-02-07 09:58] VITALS: BP 131/66
[2023-02-07 10:54] LABS: BASO # 0.1 10*3/uL (0.0-0.1); BASO % 0.7 % (0.0-1.0); EOS # 0.2 10*3/uL (0.0-0.4); EOS % 2.6 % (1.0-4.0); HEMATOCRIT 41.2 % (42.0-52.0); LYMPH # 1.7 10*3/uL (1.3-4.4); LYMPH % 18.8 % (27.0-41.0); MEAN CELL VOLUME 88.4 fl (80.0-94.0); MEAN CORPUSCULAR HGB 29.6 pg (27.0-31.0); MEAN CORPUSCULAR HGB CONC 33.5 g/dl (33.0-37.0); MEAN PLATELET VOLUME 10.3 fl (9.6-12.3); MONO # 0.5 10*3/uL (0.1-1.0); MONO % 5.9 % (3.0-9.0); NEUT # 6.4 10*3/uL (2.3-7.9); NEUT % 71.3 % (47.0-73.0); PLATELET COUNT AUTOMATED 381 10*3/uL (130-400); RED BLOOD COUNT 4.66 10*6/uL (4.50-5.90); RED CELL DISTRI WIDTH 12.2 % (0-14.5)
[2023-02-07 11:11] LABS: ALKALINE PHOSPHATASE 57 U/L (46-116); BUN 16 mg/dl (9-23); CHLORIDE 106 mmol/L (98-107); POTASSIUM 4.3 mmol/L (3.4-5.1); SGPT/ALT 34 U/L (10-49); TOTAL PROTEIN 6.7 gm/dL (6.0-8.0)
== END 2023-02-07 12:06 | disposition home or self-care (01) ==
LOC: ED 09:45
PROVIDERS: Emergency Medicine
DX: G89.18 Other acute postprocedural pain (principal); Z79.899 Other long term (current) drug therapy; Z90.89 Acquired absence of other organs; Z98.890 Other specified postprocedural states; F17.210 Nicotine dependence, cigarettes, uncomplicated

== ENCOUNTER 2024-10-29 12:16 | Emergency (ER) | payer MEDICARE ==
[~2024-10-29] VITALS: Ht 187.9 cm; Wt 102.1 kg
[2024-10-29 12:18] VITALS: BP 160/73
[2024-10-29] MEDS ORDERED: fentaNYL CITRATE/PF 50 MCG/ML SYRINGE IV ONE (12:25)
[2024-10-29] MEDS ORDERED: Ondansetron Hydrochloride 4 MG/2 ML VIAL IV ONE (12:25)
[2024-10-29] MEDS ORDERED: SODIUM CHLORIDE 0.9% 1,000 ML IV ONE (12:25)
[2024-10-29 12:36] LABS: BASO # 0.1 10*3/uL (0.0-0.1); BASO % 0.6 % (0.0-1.0); EOS # 0.3 10*3/uL (0.0-0.4); EOS % 3.2 % (1.0-4.0); HEMATOCRIT 43.5 % (42.0-52.0); MEAN CELL VOLUME 88.4 fl (80.0-94.0); MEAN CORPUSCULAR HGB 29.5 pg (27.0-31.0); MEAN CORPUSCULAR HGB CONC 33.3 g/dl (33.0-37.0); MEAN PLATELET VOLUME 10.5 fl (9.6-12.3); MONO # 0.6 10*3/uL (0.1-1.0); MONO % 6.9 % (3.0-9.0); NEUT # 5.5 10*3/uL (2.3-7.9); NEUT % 67.6 % (47.0-73.0); PLATELET COUNT AUTOMATED 203 10*3/uL (130-400); RED BLOOD COUNT 4.92 10*6/uL (4.50-5.90); RED CELL DISTRI WIDTH 12.5 % (0-14.5); WHITE BLOOD COUNT 8.1 10*3/uL (4.8-10.8)
[2024-10-29 12:57] LABS: BUN 21 mg/dl (9-23); CHLORIDE 105 mmol/L (98-107); POTASSIUM 4.1 mmol/L (3.4-5.1)
[2024-10-29] MEDS ORDERED: DERMABOND 1 EA APPL T ONE (13:50)
== END 2024-10-29 13:46 | disposition home or self-care (01) ==
LOC: ED 12:16
PROVIDERS: Emergency Medicine
DX: S01.81XA Laceration without foreign body of other part of head, initial encounter (principal); R55 Syncope and collapse; I11.0 Hypertensive heart disease with heart failure; I50.9 Heart failure, unspecified; E78.5 Hyperlipidemia, unspecified; F32.A Depression, unspecified; F17.210 Nicotine dependence, cigarettes, uncomplicated; Z90.89 Acquired absence of other organs; Z98.890 Other specified postprocedural states; X58.XXXA Exposure to other specified factors, initial encounter; Y93.89 Activity, other specified; Y92.89 Other specified places as the place of occurrence of the external cause; Y99.8 Other external cause status